=== PATIENT | male | born 1990 | race Caucasian/White ===

== ENCOUNTER 2020-02-19 07:45 | Outpatient (CLI) | payer BC ==
[2020-02-19] VITALS (21 sets, daily range): BP systolic 95–130; BP diastolic 54–87
== END 2020-02-19 23:59 | disposition home or self-care (01) ==
LOC: CARD DIAG 07:45
PROVIDERS: ATTEND Internal Medicine Cardiovascular Disease
DX: R55 Syncope and collapse (principal)
CPT/HCPCS: 93660